=== PATIENT | male | born 1950 | race Hispanic/Latino ===

== ENCOUNTER 2017-09-16 18:30 | Inpatient (IN) | payer MEDICARE ==
[2017-09-16 21:15] LABS: Basophils % (Auto) 0.9 % (0.0-1.8); Eosinophils % (Auto) 6.1 % (0.0-4.3); Hematocrit 20.4 % (35.5-45.6); Hemoglobin 6.5 gm/dl (11.8-15.2); Mean Corpuscular HGB Conc 32 % (32-34); Mean Corpuscular Hemoglobin 27 pg (28-32); Mean Corpuscular Volume 83 fl (84-94); Platelet Count 260 K/mm3 (140-440); Red Blood Count 2.46 M/mm3 (3.65-5.03); White Blood Count 4.5 K/mm3 (4.5-11.0)
[2017-09-17] MEDS ORDERED: NACL 0.9% 500 ML 500 ML IV ONE ×2 (01:37→18:32)
[2017-09-17 02:29] LABS: Anion Gap 17 mmol/L; BUN/Creatinine Ratio 19; Blood Urea Nitrogen 17 mg/dL (9-20); Calcium 9.2 mg/dL (8.4-10.2); Carbon Dioxide 23 mmol/L (22-30); Chloride 103.6 mmol/L (98-107); Glucose 89 mg/dL (75-100); Potassium 4.7 mmol/L (3.6-5.0); Sodium 139 mmol/L (137-145)
--- NOTE | 2017-09-17 02:57 | Emergency Department Report ---
HPI - General Chief Complaint: Recheck/Abnormal Lab/Rx Time Seen by Provider: 09/17/17 01:28 - HPI HPI: This is a 67-year-old male presents to the emergency department, sent in by his PCP, with complaint of some generalized weakness and her dizziness and the need for a blood transfusion. The patient had some blood work in the office and while the patient cannot remember the number of his hemoglobin, they were called today and told that it was low and that he would most likely need a transfusion at to come to [facility]. Primary care physician is Dr. Grayson. He has never required a transfusion prior and does not have any previous diagnosis to her anemia. He denies any bleeding from anywhere. He denies any chest pain, shortness of breath, fever. He did not take anything for symptoms. Bee stings. No recent travel or sick contacts at home. ED Past Medical Hx - Past Medical History Hx Hypertension: No Hx Diabetes: No Hx Deep Vein Thrombosis: No Hx Pulmonary Embolism: No Hx Arthritis: No (wisam. knee) - Surgical History Past Surgical History?: No - Social History Smoking Status: Never Smoker Substance Use Type: Prescribed - Medications Home Medications: Home Medications Medication Instructions Recorded Confirmed Last Taken Type No Known Home Medications [No 02/08/15 02/08/15 Unknown History Reported Home Medications] ED Review of Systems ROS: Stated complaint: WEAK,DIZZY Other details as noted in HPI Comment: All other systems reviewed and negative Constitutional: weakness. denies: chills, fever Eyes: denies: eye pain, eye discharge, vision change ENT: denies: ear pain, throat pain Respiratory: denies: cough, shortness of breath, wheezing Cardiovascular: denies: chest pain, palpitations Gastrointestinal: denies: abdominal pain, nausea, diarrhea Genitourinary: denies: urgency, dysuria Musculoskeletal: denies: back pain, joint swelling, arthralgia Skin: denies: rash, lesions Neurological: denies: headache, paresthesias Physical Exam - Physical Exam Vital Signs: Vital Signs 09/16/17 09/16/17 09/17/17 19:42 22:41 00:32 Temperature 98.4 F 98.3 F 97.6 F Pulse Rate 62 52 L 47 L Respiratory 18 Rate Blood Pressure 128/70 121/64 Blood Pressure 102/68 [Left] O2 Sat by Pulse 98 98 97 Oximetry Physical Exam: GENERAL: The patient is well-developed well-nourished. HENT: Normocephalic. Atraumatic. Patient has moist mucous membranes. EYES: Extraocular motions are intact. Pupils equal reactive to light bilaterally. Pale conjunctiva. NECK: Supple. Trachea is midline. CHEST/LUNGS: Clear to auscultation. There is no respiratory distress noted. HEART/CARDIOVASCULAR: Regular. There is no tachycardia. There is no gallop rub or murmur. ABDOMEN: Abdomen is soft, nontender. Patient has normal bowel sounds. There is no abdominal distention. SKIN: Skin is warm and dry. NEURO: The patient is awake, alert, and oriented. The patient is cooperative. The patient has no focal neurologic deficits. The patient has normal speech. MUSCULOSKELETAL: There is no tenderness or deformity. There is no evidence of acute injury. Cap refill less than 2 seconds. ED Course Vital Signs 09/16/17 09/16/17 09/17/17 19:42 22:41 00:32 Temperature 98.4 F 98.3 F 97.6 F Pulse Rate 62 52 L 47 L Respiratory 18 Rate Blood Pressure 128/70 121/64 Blood Pressure 102/68 [Left] O2 Sat by Pulse 98 98 97 Oximetry ED Medical Decision Making - Lab Data Result diagrams: 09/16/17 21:02 09/17/17 01:38 - EKG Data -: EKG Interpreted by Nd EKG shows normal: sinus rhythm, axis, intervals, QRS complexes, ST-T waves Rate: bradycardia (45 bpm) - EKG Data When compared to previous EKG there are: previous EKG unavailable Interpretation: other (sinus bradycardia at 45 bpm, no ST elevation IA) - Medical Decision Making 67-year-old male presents with some nonspecific weakness and/or dizziness and sent in for a blood transfusion after he was found to have anemia. Here today, the hemoglobin was 6.5. He denies any chest pain, fever, shortness of breath, nausea or vomiting. However the weakness and her dizziness could make this symptomatic anemia. He also appears to have some sustained bradycardia with a heart rate that stays in the mid 40s. Otherwise no dysrhythmia, heart block or ST elevation IA seen on EKG. He will be transfused 2 units of packed red blood cells and will be admitted to the hospital for further evaluation and treatment. It has been presented to the current hospitalist, Dr. Doshi, who will either do this patient's admission or it will be given to the incoming hospitalist. - Differential Diagnosis iron deficiency, B12 deficiency, GI bleed Critical Care Time: No Critical care attestation.: If time is entered above; I have spent that time in minutes in the direct care of this critically ill patient, excluding procedure time. ED Disposition Clinical Impression: Symptomatic anemia, Normocytic anemia, Bradycardia with 41-50 beats per minute Disposition: -09 OP ADMIT IP TO THIS HOSP Is pt being admited?: Yes Condition: Stable Referrals: MISA GRAYSON MD [Primary Care Provider] - 3-5 Days Time of Disposition: 03:37
[2017-09-17] MEDS ORDERED: MILK OF MAGNESIA PO PRN (03:39)
[2017-09-17] MEDS ORDERED: ZOFRAN IV PRN (03:39)
[2017-09-17] MEDS ORDERED: TYLENOL PO PRN (03:39)
[2017-09-17] MEDS ORDERED: DULCOLAX PR PRN (03:39)
--- NOTE | 2017-09-17 03:41 | History and Physical Report ---
History of Present Illness Date of examination: 09/17/17 History of present illness: 67-year-old man with a history of chronic anemia and was sent to the emergency room for transfusion by his primary care physician. Complaining of dizziness, generalized weakness Review Of Systems: Constitutional: no weight loss Ears, eyes, nose, mouth and throat: no nasal congestion, no nasal discharge, no sinus pressure, blurry vision, diplopia Neck: No neck pain or rigidity. Cardiovascular: no chest pain, orthopnea, palpitations Respiratory: No shortness of breath, cough Gastrointestinal:no abdominal pain, hematochezia Genitourinary : no dysuria, frequency , hematuria Musculoskeletal: no muscle ache Integumentary: no rash, no pruritis Neurological: no parathesias, focal weakness Endocrine: no cold or heat intolerance, no polyuria or polydipsia Hematologic/Lymphatic: no easy bruising, no easy bleeding, no gland swelling Allergic/Immunologic: no urticaria, no angioedema. PAST MEDICAL HISTORY:chronic anemia PAST SURGICAL HISTORY: None FAILY HISTORY: Hypertension SOCIAL HISTORY: Denies tobacco, alcohol, drugs Medications and Allergies Allergies Allergy/AdvReac Type Severity Reaction Status Date / Time No Known Allergies Allergy Verified 09/16/17 19:42 Home Medications Medication Instructions Recorded Confirmed Last Taken Type No Known Home Medications [No 02/08/15 02/08/15 Unknown History Reported Home Medications] Exam - Physical Exam Narrative exam: Gen. appearance: Patient lying in bed in no acute distress HEENT: Normocephalic/atraumatic, pupils equal round reactive to light, extra alkaline movement intact, no scleral icterus, no JVD or thyromegaly or nodule, neck is supple, mucous membrane moist, no erythema or exudate Heart: S1-S2, regular rate and rhythm Lungs: Clear to auscultation bilateral breathing comfortable Abdomen: Positive bowel sounds, nontender, nondistended, no organomegaly Extremities: No edema, cyanosis, clubbing Neuro:: Oriented 3 , cranial nerves II-12 intact, speech, motor intact Skin: No rash, nodules, warm dry - Constitutional Vitals: Temp Pulse Resp BP Pulse Ox 97.6 F 47 L 18 102/68 97 09/17/17 00:32 09/17/17 00:32 09/17/17 00:32 09/17/17 00:32 09/17/17 00:32 Results - Labs CBC & Chem 7: 09/16/17 21:02 09/17/17 01:38 Labs: Abnormal lab results 09/16/17 09/17/17 Range/Units 21:02 01:50 RBC 2.46 L (3.65-5.03) M/mm3 Hgb 6.5 L (11.8-15.2) gm/dl Hct 20.4 L (35.5-45.6) % MCV 83 L (84-94) fl MCH 27 L (28-32) pg RDW 19.0 H (13.2-15.2) % Lymph % (Auto) 35.4 H (13.4-35.0) % [place] % (Auto) 9.1 H (0.0-7.3) % Eos % (Auto) 6.1 H (0.0-4.3) % Crossmatch See Detail Assessment and Plan Assessment Acute on chronic anemia Plan Admit to medicine, transfuse blood Iron studies, stool for guaiac DVT prophylaxis
[2017-09-17] MEDS ORDERED: NACL 0.9% 500 ML 500 ML IV SCH (13:00)
--- NOTE | 2017-09-17 15:32 | Event Note ---
Date: 09/17/17 Patient seen and evaluated Getting PRBC transfusion. Recheck H/H and f/u on Iron studies etc. GI consult???
--- NOTE | 2017-09-17 15:48 | Discharge Summary ---
Providers - Providers Date of Admission: 09/17/17 03:39 Date of discharge: 09/17/17 Attending physician: RUDDY RECIO Primary care physician: MISA GRAYSON Hospitalization Condition: Stable Disposition: DC-01 TO HOME OR SELFCARE Core Measure Documentation - Palliative Care Palliative Care/ Comfort Measures: Not Applicable - Core Measures Any of the following diagnoses?: none Exam - Constitutional Vitals: Temp Pulse Resp BP Pulse Ox 98.4 F 65 18 106/61 99 09/17/17 14:56 09/17/17 14:56 09/17/17 14:56 09/17/17 14:56 09/17/17 14:08 General appearance: Present: no acute distress, well-nourished - EENT Eyes: Present: PERRL ENT: hearing intact, clear oral mucosa - Neck Neck: Present: supple, normal ROM - Respiratory Respiratory effort: normal Respiratory: bilateral: CTA - Cardiovascular Heart Sounds: Present: S1 & S2. Absent: rub, click - Extremities Extremities: pulses symmetrical, No edema Peripheral Pulses: within normal limits - Abdominal General gastrointestinal: Present: soft, non-tender, non-distended, normal bowel sounds Male genitourinary: Present: normal - Integumentary Integumentary: Present: clear, warm, dry - Musculoskeletal Musculoskeletal: gait normal, strength equal bilaterally - Psychiatric Psychiatric: appropriate mood/affect, intact judgment & insight - Neurologic Neurologic: CNII-XII intact, moves all extremities Plan Diet: regular Follow up with: MISA GRAYSON MD [Primary Care Provider] - 3-5 Days
[2017-09-17 17:17] LABS: Hemoglobin 7.1 gm/dl (11.8-15.2); Mean Corpuscular HGB Conc 31 % (32-34); Mean Corpuscular Volume 83 fl (84-94); Platelet Count 225 K/mm3 (140-440); Red Blood Count 2.77 M/mm3 (3.65-5.03); Red Cell Distribution Width 18.3 % (13.2-15.2); White Blood Count 3.6 K/mm3 (4.5-11.0)
[2017-09-17 17:18] LABS: Mean Corpuscular Hemoglobin 26 pg (28-32)
[2017-09-18 04:41] LABS: Basophils % (Auto) 0.6 % (0.0-1.8); Eosinophils % (Auto) 5.2 % (0.0-4.3); Hemoglobin 8.5 gm/dl (11.8-15.2); Mean Corpuscular HGB Conc 33 % (32-34); Mean Corpuscular Hemoglobin 27 pg (28-32); Mean Corpuscular Volume 83 fl (84-94); Platelet Count 230 K/mm3 (140-440); Red Blood Count 3.15 M/mm3 (3.65-5.03); Red Cell Distribution Width 17.7 % (13.2-15.2); White Blood Count 4.7 K/mm3 (4.5-11.0)
[2017-09-18 04:53] LABS: Anion Gap 14 mmol/L; BUN/Creatinine Ratio 17; Blood Urea Nitrogen 15 mg/dL (9-20); Calcium 8.9 mg/dL (8.4-10.2); Carbon Dioxide 23 mmol/L (22-30); Chloride 104.1 mmol/L (98-107); Glucose 93 mg/dL (75-100); Sodium 137 mmol/L (137-145)
[2017-09-18 08:04] VITALS: BP 136/70
== END 2017-09-18 10:40 | disposition home or self-care (01) | DRG 812 ==
LOC: ED 18:30 → CC2 09-17 03:39
PROVIDERS: ADMIT Internal Medicine; ATTEND Internal Medicine
PROC: 30233N1 Transfusion of Nonautologous Red Blood Cells into Peripheral Vein, Percutaneous Approach (ICD-10-PCS; principal; 2017-09-17)
DX: D64.9 Anemia, unspecified (principal); Z82.49 Family history of ischemic heart disease and other diseases of the circulatory system
CPT/HCPCS: 36415; 80048; 82728; 83540; 84443; 85025; 85027; 86850; 86900; 86901; 86920; 93005; 93010; 99285; J7040; P9016